=== PATIENT | female | born 1955 | race Caucasian/White ===

== ENCOUNTER 2017-05-28 13:43 | Outpatient (CLI) | payer BC | END 2017-05-28 13:44 | disposition home or self-care (01) | LOC: BICMAMMO 13:43 | PROVIDERS: ATTEND Obstetrics & Gynecology | DX: Z12.31 Encounter for screening mammogram for malignant neoplasm of breast (principal); R92.1 Mammographic calcification found on diagnostic imaging of breast; Z80.3 Family history of malignant neoplasm of breast | CPT/HCPCS: 77063; 77067 ==

== ENCOUNTER 2018-07-08 14:56 | Outpatient (CLI) | payer BC ==
--- NOTE | 2018-07-17 14:10 | MMO ---
Bilateral MAMMO Bilat Screen [facility]. CLINICAL HISTORY: Patient is 62 years old and is seen for screening. The patient has the following family history of breast cancer: cousin female, premenopausal. The patient has no personal history of cancer. VIEWS: The views performed were: bilateral craniocaudal with tomosynthesis and bilateral mediolateral oblique with tomosynthesis. FILMS COMPARED: The present examination has been compared to prior imaging studies performed at [facility] on 02/24/2002, 08/17/2004, 05/13/2006, 09/20/2009, 10/24/2010, 11/20/2011, 11/20/2012, 01/27/2014, 02/02/2015, 04/10/2016 and 05/28/2017. MAMMOGRAM FINDINGS: There are scattered fibroglandular densities. There are stable benign appearing calcifications seen in both breasts. There are also vascular calcifications. There are no suspicious masses, suspicious calcifications, or new areas of architectural distortion. IMPRESSION: THERE IS NO MAMMOGRAPHIC EVIDENCE OF MALIGNANCY. A ROUTINE FOLLOW-UP MAMMOGRAM IN 1 YEAR IS RECOMMENDED. THE RESULTS OF THIS EXAM WERE SENT TO THE PATIENT. ACR BI-RADS Category 2 - Benign finding MAMMOGRAPHY NOTE: 1. A negative mammogram report should not delay a biopsy if a dominant of clinically suspicious mass is present. 2. Approximately 10% to 15% of breast cancers are not detected by mammography. 3. Adenosis and dense breasts may obscure an underlying neoplasm.
== END 2018-07-08 14:57 | disposition home or self-care (01) ==
LOC: BICMAMMO 14:56
PROVIDERS: ATTEND Obstetrics & Gynecology
DX: Z12.31 Encounter for screening mammogram for malignant neoplasm of breast (principal); Z80.3 Family history of malignant neoplasm of breast
CPT/HCPCS: 77063; 77067

== ENCOUNTER 2018-12-11 14:20 | Outpatient (CLI) | payer BC ==
--- NOTE | 2018-12-11 15:13 | RAD ---
EXAM: Two views chest PROVIDED CLINICAL HISTORY: Dermatomyositis COMPARISON: None FINDINGS: Cardiac and mediastinal silhouette appears within normal limits. Lungs appear free of significant opa city. No pleural fluid or pneumothorax apparent. Right convexity curvature of the mid to lower thoracic spine. IMPRESSION: No evidence for an acute cardiopulmonary process.
== END 2018-12-11 14:21 | disposition home or self-care (01) ==
LOC: BICRAD 14:20
PROVIDERS: ATTEND Internal Medicine Rheumatology
DX: M33.90 Dermatopolymyositis, unspecified, organ involvement unspecified (principal)
CPT/HCPCS: 71046

== ENCOUNTER 2018-12-17 08:02 | Outpatient (CLI) | payer BC ==
--- NOTE | 2018-12-17 08:28 | BD ---
DEXA BONE DENSITY SCAN: DATE: 12/17/2018. COMPARISON: 02/02/2015. HISTORY: Postmenopausal female undergoing screening for osteoporosis. FINDINGS: Lumbar Spine: BMD (g/cm2) L1 0.822 T-Score: -1.5 Previous: -1.4 L2 0.866 T-Score: -1.5 Previous: -0.8 L3 0.959 T-Score: -1.1 Previous: -1.8 L4 1.011 T-Score: -0.5 Previous: -1.0 L1-L4 0.917 T-Score: -1.2 Previous: -1.3 Femoral Neck: 0.676 T-Score: -1.6 Previous: -1.8 Total Femur: 0.856 T-Score: -0.7 Previous: -1.2 FRAX-WHO fracture risk assessment tool reports a 10 year fracture risk of 13% for major osteoporotic fracture and 1.7% for hip fracture in an untreated patient. IMPRESSION: Osteopenia within the lumbar spine and femoral neck correlating with a moderately increased risk for fracture. Transcribed Date/Time: 12/17/2018 9:06 AM
== END 2018-12-17 08:03 | disposition home or self-care (01) ==
LOC: BICMAMMO 08:02
PROVIDERS: ATTEND Internal Medicine Rheumatology
DX: M81.0 Age-related osteoporosis without current pathological fracture (principal); M85.89 Other specified disorders of bone density and structure, multiple sites
CPT/HCPCS: 77080

== ENCOUNTER 2021-03-02 10:03 | Outpatient (CLI) | payer BC | END 2021-03-02 10:04 | disposition home or self-care (01) | LOC: BICRAD 10:03 | PROVIDERS: ATTEND Family Medicine | DX: S24.109A Unspecified injury at unspecified level of thoracic spinal cord, initial encounter (principal); S22.41XA Multiple fractures of ribs, right side, initial encounter for closed fracture; M47.814 Spondylosis without myelopathy or radiculopathy, thoracic region | CPT/HCPCS: 72072 ==

== ENCOUNTER 2022-02-07 14:31 | Outpatient (CLI) | payer BC | END 2022-02-07 14:32 | disposition home or self-care (01) | LOC: BICRAD 14:31 | PROVIDERS: ATTEND Orthopaedic Surgery | DX: M41.9 Scoliosis, unspecified (principal); M47.819 Spondylosis without myelopathy or radiculopathy, site unspecified | CPT/HCPCS: 72081 ==